=== PATIENT | female | born 1945 | race Caucasian/White ===

== ENCOUNTER 2018-05-25 17:00 | Emergency (ER) | payer MEDICARE, OTHER ==
[~2018-05-25] VITALS: Ht 154.9 cm; Wt 73.5 kg
[2018-05-25 17:05] VITALS: BP 196/103
--- NOTE | 2018-05-25 17:08 | NUR ---
PATIENT AMBULATED TO BED 4.
--- NOTE | 2018-05-25 17:10 | NUR ---
bib with c/o hypertension with dizziness and shakiness x 1400 today. Patient denies any cp, changes in vision, headache, or sob. Patient sts she took her blood pressure medication. hx--DM, HTN rx--metformin, Avapro PATIENT STATES PAIN OF 0/10 AT THIS TIME. PATIENT POSITIONED FOR COMFORT; HOB ELEVATED; BEDRAILS UP X2; BED DOWN. ER MD MADE AWARE OF PT STATUS.
[2018-05-25 18:00] VITALS: BP 142/87
--- NOTE | 2018-05-25 18:00 | NUR ---
Patient discharged with v/s stable. Written and verbal after care instructions given and explained. Patient alert, oriented and verbalized understanding of instructions. Ambulatory with steady gait. All questions addressed prior to discharge. ID band removed. Patient advised to follow up with PMD. Rx of MOTRIN 800MG AND CIPRO 500MG given. Patient educated on indication of medication including possible reaction and side effects. Opportunity to ask questions provided and answered.
== END 2018-05-25 18:00 | disposition home or self-care (01) ==
LOC: MED 17:00
DX: I10 Essential (primary) hypertension (principal); N39.0 Urinary tract infection, site not specified; E11.9 Type 2 diabetes mellitus without complications; R51 Headache; R42 Dizziness and giddiness
CPT/HCPCS: 81002; 93005; 99283

== ENCOUNTER 2018-06-01 17:59 | Emergency (ER) | payer MEDICARE, OTHER ==
[~2018-06-01] VITALS: Ht 154.9 cm; Wt 71.8 kg
[2018-06-01 18:18] VITALS: BP 146/94
--- NOTE | 2018-06-01 18:34 | NUR ---
72 yo f bib self w/ c/o "high blood pressure" x 2 days. pt reports that systolic has been 180-200, so she took her bp meds and now bp 146/94. pt reports dizziness and not feeling well when her bp is elevated. pt educated. aaox4, gcs 15. ambulatory w/ steady gait. hx htn rx losartan, nifedipine, hydrochlorathiazide
[2018-06-01] MEDS ORDERED: ONDANSETRON 4 MG ODT PO ONE (18:40)
--- NOTE | 2018-06-01 19:07 | NUR ---
REPORT GIVEN TO TY WALLACE FOR TRANSFER OF CARE AT THIS TIME.
--- NOTE | 2018-06-01 19:20 | NUR ---
PT LAYING IN BED, FAMILY AT BEDSIDE. VS NOTED, RR EVEN AND UNLABORED. DENIES NAUSEA AT THIS TIME. ALL NEEDS MET.
[2018-06-01 19:26] LABS: APPEARANCE,URINE CLEAR (CLEAR); BILIRUBIN,URINE NEGATIVE (NEGATIVE); BLOOD, URINE NEGATIVE (NEGATIVE); COLOR,URINE YELLOW (YELLOW); LEUKOCYTE ESTERASE ,URINE TRACE (NEGATIVE); NITRITE, URINE NEGATIVE (NEGATIVE); UGLUCOSE NEGATIVE (NEGATIVE)
[2018-06-01 19:59] LABS: RBC,URINE NONE SEEN /HPF (0-5); WBC,URINE 0-5 (RARE) /HPF (0-5)
[2018-06-01 20:09] VITALS: BP 142/67
--- NOTE | 2018-06-01 20:09 | NUR ---
Patient discharged with v/s stable. Written and verbal after care instructions given and explained. Patient alert, oriented and verbalized understanding of instructions. Ambulatory with steady gait. All questions addressed prior to discharge. ID band removed. Patient advised to follow up with PMD. Rx of ZOFRAN 8MG given. Patient educated on indication of medication including possible reaction and side effects. Opportunity to ask questions provided and answered.
== END 2018-06-01 20:09 | disposition home or self-care (01) ==
LOC: MED 17:59
DX: I10 Essential (primary) hypertension (principal); R11.2 Nausea with vomiting, unspecified; E11.9 Type 2 diabetes mellitus without complications
CPT/HCPCS: 81001; 81025; 93005; 99284; Q0162

== ENCOUNTER 2020-04-28 14:57 | Emergency (ER) | payer MEDICARE, OTHER, SELFPAY ==
[~2020-04-28] VITALS: Ht 149.9 cm; Wt 72.1 kg
[2020-04-28 15:04] VITALS: BP 136/50
--- NOTE | 2020-04-28 15:12 | NUR ---
74 y/o female bib daughter c/o cough, fever and SOB x 3 days. Pt seen at urgent care and diagnosed with pneumonia today. RR even and unlabored, does not appear in distress. VSS medhx: DM, HTN
[2020-04-28 15:51] VITALS: BP 136/50
--- NOTE | 2020-04-28 15:51 | NUR ---
Patient discharged with v/s stable. Written and verbal after care instructions given and explained. Patient alert, oriented and verbalized understanding of instructions. Ambulatory with steady gait. All questions addressed prior to discharge. ID band removed. Patient advised to follow up with PMD. Rx of Naprosyn 500mg, Promethazine DM 6.25mg, Albuterol inhaler, Imodium 2mg, Azithromycin 250mg given. Patient educated on indication of medication including possible reaction and side effects. Opportunity to ask questions provided and answered.
== END 2020-04-28 15:51 | disposition home or self-care (01) ==
LOC: MED 14:57
DX: J18.9 Pneumonia, unspecified organism (principal); Z20.828 Contact with and (suspected) exposure to other viral communicable diseases; E11.9 Type 2 diabetes mellitus without complications; I10 Essential (primary) hypertension; Z98.890 Other specified postprocedural states
CPT/HCPCS: 99283

== ENCOUNTER 2020-04-29 02:09 | Emergency (ER) | payer MEDICARE, OTHER, SELFPAY ==
[~2020-04-29] VITALS: Ht 149.9 cm; Wt 68.0 kg
[2020-04-29 02:23] VITALS: BP 124/61
--- NOTE | 2020-04-29 02:23 | NUR ---
TO TENT AMBULATORY
[2020-04-29 03:03] VITALS: BP 124/61
--- NOTE | 2020-04-29 03:03 | NUR ---
Patient discharged with v/s stable. Written and verbal after care instructions given and explained. Patient verbalized understanding. Ambulatory with steady gait. All questions addressed prior to discharge. Advised to follow up with PMD.
== END 2020-04-29 03:03 | disposition home or self-care (01) ==
LOC: MED 02:09
DX: R09.02 Hypoxemia (principal); E11.9 Type 2 diabetes mellitus without complications; I10 Essential (primary) hypertension; Z90.49 Acquired absence of other specified parts of digestive tract; Z98.890 Other specified postprocedural states
CPT/HCPCS: 99281